=== PATIENT | female | born 1955 | race Caucasian/White ===

== ENCOUNTER 2022-07-03 12:40 | Emergency (ER) | payer BC, OTHER ==
[~2022-07-03] VITALS: Ht 170.2 cm; Wt 53.6 kg
[2022-07-03 13:10] VITALS: BP 129/61
[2022-07-03] MEDS ORDERED: ibuprofen 200mg tablet PO ONE (16:50)
--- NOTE | 2022-07-03 17:07 | NUR ---
[facility] RO[facility] FOR PATIENT CARE
== END 2022-07-03 17:28 | disposition home or self-care (01) ==
LOC: ER 12:40
DX: S82.302A Unspecified fracture of lower end of left tibia, initial encounter for closed fracture (principal); F17.200 Nicotine dependence, unspecified, uncomplicated; X50.1XXA Overexertion from prolonged static or awkward postures, initial encounter; Y93.89 Activity, other specified; Y92.89 Other specified places as the place of occurrence of the external cause; Y99.8 Other external cause status
CPT/HCPCS: 29515; 73610; 99284; A6449